=== PATIENT | male | born 1955 | race Caucasian/White ===

== ENCOUNTER 2017-09-01 11:13 | Observation (INO) ==
--- NOTE | 2017-09-01 14:32 | Emergency Department Note ---
Disposition Clinical Impression: Behavioral change, Lacunar infarction Disposition: Home, Self-Care Condition: Fair Time of Disposition: 17:45 Neuro HPI - General Chief Complaint: ED Psychiatric Symptoms Stated Complaint: PSYCH/Paranoia Time Seen by Provider: 09/01/17 13:28 Source: patient Limitations: no limitations Nursing Notes Reviewed: Yes Vital Signs Reviewed: Yes - History of Present Illness HPI Narrative: 61-year-old male presents complaining of neurologic changes, behavior changes for the last few days but his family states that he is a change in behavior over the last month or so, has been a precipitous decline, he has a history of hypertension no previous strokes or MIs. The patient states that he has worsening insomnia as well, and he has been having insomnia for the last few nights, but over the last couple days his daughters noticed that he has had some word finding issues associated with blurry vision as well, no focal deficits or slurred speech. Onset of Symptoms Date: 08/30/17 Symptom Onset Unknown: Yes Timing confirmed by: family member Location: speech, altered History of same: No Severity: mild Symptoms Improving: No Improves with: none Worsens with: none Context: gradual onset On Anticoagulants: No Associated symptoms: Reports: confusion, other (insomnia). Denies: chest pain, cough, headaches, loss of appetite, nausea/vomiting Treatments Prior to Arrival: none - Related Data Home Medications: Home Medications Medication Instructions Recorded Confirmed Cetirizine HCl [Zyrtec] 10 mg PO DAILY 09/01/17 09/01/17 Ibuprofen [Motrin] 400 mg PO HS 09/01/17 09/01/17 Melatonin 5 mg PO HS 09/01/17 09/01/17 amLODIPine [Norvasc] 5 mg PO BID 09/01/17 09/01/17 Allergies/Adverse Reactions: Allergies Allergy/AdvReac Type Severity Reaction Status Date / Time Sulfa (Sulfonamide Allergy Swelling Verified 09/01/17 11:33 Antibiotics) of Lip/Tongue/Throat Hydromorphone [From Dilaudid] AdvReac Hypertensio Verified 09/01/17 11:33 n All systems ED: reviewed and negative except as stated. Review of Systems: As Per HPI Constitutional: Denies: fever, chills Eyes: Denies: eye pain ENT ED: Denies: ear pain Cardiovascular: Denies: chest pain, palpitations Respiratory: Denies: cough Gastrointestinal: Denies: abdominal pain, nausea Genitourinary: Denies: dysuria Musculoskeletal: Denies: back pain Integumentary: Denies: rash Neurological: Reports: as per HPI, confusion. Denies: headache Psychiatric: Reports: as per HPI, other (confusion, insomnia). Denies: anxiety , depression Endocrine: Denies: fatigue, heat or cold intolerance Hematological/Lymphatic: Denies: easy bleeding Past Medical History - Past Medical History Attestation: Yes The following information was validated with the patient. Source: patient Medical history: Reports: GERD, hypertension, other Psychiatric history: Reports: anxiety - Social History Smoking Status: Never smoker Smokeless Tobacco Status: No Alcohol use: Reports: none Drug use: Reports: none Physical Exam Constitutional: alert and oriented, in NAD, vital signs reviewed and wnl HEENT: NCAT, sclera anicteric, PERRLA bilaterally, EOMI Neck: normal inspection, neck is supple, trachea midline Resp: normal chest inspection, CTA bilaterally, no resp distress CV: RRR, no m/g/r GI: normal inspection, Soft, NTND, BS present Back: normal inspection, no tenderness to palpation Neuro: A&O3, gait normal, CN II-XII grossly intact bilaterally, DTRs +2/4 bilateral UE and LE, 5/5 MS bilateral UE and LE, no sensory deficits bilaterally UE and LE, finger to nose intact, JEFE intact and wnl MSK: Right leg AKA, appears within normal limits Psych: normal mood, normal affect Skin: No rashes, skin warm, dry, intact - General Limitations: no limitations General appearance: alert, in no apparent distress Course Course Narrative: Elderly male appears in no acute distress, he states that he has confusion, insomnia, vision changes, his NIH is essentially 0 given that he has no focal deficits, but this is concerning with new vision changes in symptoms, behavioral versus neurologic CT scan ordered basic lab work, determine whether or not patient will need admission for MRI or outpatient follow-up - Reevaluation(s) Reevaluation #1: CT scan was remarkable for a lacunar infarct, this is new from previous CT scan patient's hemodynamically stable, outside the window for TPA by several days, will given aspirin plan for admission to medicine service accepting Vital Signs Temperature 97.6 F 09/01/17 11:22 Pulse Rate 79 09/01/17 11:22 Respiratory Rate 16 09/01/17 11:22 Blood Pressure 143/77 09/01/17 11:22 O2 Sat by Pulse Oximetry 94 09/01/17 11:22 Temperature 97.6 F 09/01/17 11:22 Pulse Rate 71 09/01/17 19:22 Respiratory Rate 16 09/01/17 19:22 Blood Pressure 149/77 09/01/17 19:22 O2 Sat by Pulse Oximetry 95 09/01/17 19:22 Oxygen Delivery Oxygen Delivery Room Air Neuro Symptoms/Deficit - Differential Diagnosis Likely: cerebrovascular accident, subarachnoid hemorrhage, transient cerebral ischemia, convulsions - Medical Records Medical records reviewed: Yes I reviewed the patient's medical records. - Lab Data Lab results reviewed: Yes I reviewed the patient's lab results. Result diagrams: 09/01/17 15:01 09/01/17 15:01 Lab Results 09/01/17 09/01/17 09/01/17 Range/Units 15:01 15:01 15:01 WBC 7.4 (4.3-11.1) K/mcL RBC 5.28 (4.19-5.50) M/mcL Hgb 15.8 (12.9-16.9) g/dL Hct 45.0 (37.5-50.1) % MCV 85.2 (83.0-100.0) fL MCH 29.9 (28.0-33.3) pg MCHC 35.1 (31.6-35.5) g/dL RDW 12.3 (11.5-14.5) % Plt Count 297 (140-400) K/mcL MPV 9.8 (9.4-12.4) fL Immature Gran % 0.3 (0-4) % Seg Neutrophils % 62.2 % Lymphocytes % 26.0 % Monocytes % 9.1 % Eosinophils % 1.9 % Basophils % 0.5 % Neutrophils # 4.6 (1.6-8.9) K/mcL Lymphocytes # 1.9 (0.6-4.6) K/mcL Monocytes # 0.7 (0.0-1.3) K/mcL Eosinophils # 0.1 (0.0-0.6) K/mcL Basophils # 0.0 (0.0-0.2) K/mcL PT (9.4-12.1) Seconds INR APTT (26.0-36.0) Seconds Sodium 140 (136-145) mEq/L Potassium 3.7 (3.5-5.1) mEq/L Chloride 103 (98-107) mEq/L Carbon Dioxide 29 (23-29) mEq/L BUN 12 (8-23) mg/dL Creatinine 0.91 (0.70-1.30) mg/dL Est GFR ( Amer) > 60 (> 60) Est GFR (Non-Af Amer) > 60 (> 60) BUN/Creatinine Ratio 13 (6-26) Glucose 92 (70-105) mg/dL Calculated Osmolality 289 (280-300) Calcium 9.1 (8.6-10.3) mg/dL Total Bilirubin 0.6 (0.3-1.0) mg/dL AST 18 (13-39) Units/L ALT 24 (7-52) Units/L Alkaline Phosphatase 95 (34-104) Units/L Serum Total Protein 7.3 (6.4-8.9) g/dL Albumin 4.2 (3.5-5.7) g/dL Globulin 3.1 (2.4-3.5) g/dL Albumin/Globulin Ratio 1.4 (1.1-2.2) Vitamin B12 329 (250-1100) pg/mL TSH 0.259 L (0.340-5.600) mcIU/mL Urine Color (Yellow) Urine Clarity (Clear) Urine pH (5.0-8.0) pH Units Ur Specific Willis (1.010-1.025) Urine Protein (Neg-Trace) mg/dL Urine Glucose (UA) (Normal) mg/dL Urine Ketones (Negative) mg/dL Urine Blood (Negative) Urine Nitrite (Negative) Urine Bilirubin (Negative) Urine Urobilinogen (Normal) mg/dL Ur Leukocyte Esterase (Negative) Urine Microscopic RBC (0-3) per hpf Urine Microscopic WBC (0-3) per hpf Ur Squamous Epith Cells (None-Few) per lpf Urine Bacteria (None-Few) per hpf Hyaline Casts (None-Few) per lpf Ur Culture Indicated? (NO) 09/01/17 09/01/17 Range/Units 15:01 16:10 WBC (4.3-11.1) K/mcL RBC (4.19-5.50) M/mcL Hgb (12.9-16.9) g/dL Hct (37.5-50.1) % MCV (83.0-100.0) fL MCH (28.0-33.3) pg MCHC (31.6-35.5) g/dL RDW (11.5-14.5) % Plt Count (140-400) K/mcL MPV (9.4-12.4) fL Immature Gran % (0-4) % Seg Neutrophils % % Lymphocytes % % Monocytes % % Eosinophils % % Basophils % % Neutrophils # (1.6-8.9) K/mcL Lymphocytes # (0.6-4.6) K/mcL Monocytes # (0.0-1.3) K/mcL Eosinophils # (0.0-0.6) K/mcL Basophils # (0.0-0.2) K/mcL PT 11.3 (9.4-12.1) Seconds INR 1.1 APTT 26.5 (26.0-36.0) Seconds Sodium (136-145) mEq/L Potassium (3.5-5.1) mEq/L Chloride (98-107) mEq/L Carbon Dioxide (23-29) mEq/L BUN (8-23) mg/dL Creatinine (0.70-1.30) mg/dL Est GFR ( Amer) (> 60) Est GFR (Non-Af Amer) (> 60) BUN/Creatinine Ratio (6-26) Glucose (70-105) mg/dL Calculated Osmolality (280-300) Calcium (8.6-10.3) mg/dL Total Bilirubin (0.3-1.0) mg/dL AST (13-39) Units/L ALT (7-52) Units/L Alkaline Phosphatase (34-104) Units/L Serum Total Protein (6.4-8.9) g/dL Albumin (3.5-5.7) g/dL Globulin (2.4-3.5) g/dL Albumin/Globulin Ratio (1.1-2.2) Vitamin B12 (250-1100) pg/mL TSH (0.340-5.600) mcIU/mL Urine Color Yellow (Yellow) Urine Clarity Clear (Clear) Urine pH 6.0 (5.0-8.0) pH Units Ur Specific Willis 1.013 (1.010-1.025) Urine Protein Trace (Neg-Trace) mg/dL Urine Glucose (UA) Normal (Normal) mg/dL Urine Ketones Negative (Negative) mg/dL Urine Blood Negative (Negative) Urine Nitrite Negative (Negative) Urine Bilirubin Negative (Negative) Urine Urobilinogen Normal (Normal) mg/dL Ur Leukocyte Esterase Negative (Negative) Urine Microscopic RBC 3-5 H (0-3) per hpf Urine Microscopic WBC 3-5 H (0-3) per hpf Ur Squamous Epith Cells Moderate H (None-Few) per lpf Urine Bacteria None Seen (None-Few) per hpf Hyaline Casts None Seen (None-Few) per lpf Ur Culture Indicated? NO (NO) - Radiology Data Radiology results reviewed: Yes I reviewed the patient's radiology results. Head CT 09/01/17 14:31 IMPRESSION: There is a 5 mm area of low attenuation in the left internal capsule not well seen on the prior exam and likely reflects an age indeterminate lacunar infarct. Recommend further evaluation with MRI as clinically indicated. Otherwise, no acute intracranial abnormality. D/ / 09/01/2017 16:30:47 Yamile Schwartz MD / earl Interpreting Provider: Yamile Schwartz MD NIH Stroke Scale - Level of Consciousness LOC: Alert - LOC Questions LOC Questions: Answers both correctly - LOC Commands LOC Commands: Performs both correctly - Best Gaze Best Gaze: Normal - Visual Visual: No visual loss - Facial Palsy Facial Palsy: Normal - Motor Arms Motor Arm-Left: No drift for 10 seconds Motor Arm-Right: No drift for 10 seconds - Motor Legs Motor Leg-Left: No drift for 5 seconds Motor Leg-Right: No drift for 5 seconds - Limb Ataxia Limb Ataxia: Absent of affected limb too weak to perform exam - Sensory Sensory: Normal - Best Language Best Language: No aphasia - Dysarthria Dysarthria: Normal - Extinction and Inattention Extinction and Inattention: Normal - NIHSS Total Score NIHSS Total Score: 0 Attestation Statement - Attestation Attestation: Dr Day note: Pt seen in conjunction w/ resident Dr Henry; Please see his charting for complete documentation; I spent face to face time w/ pt and agree w/ pts treament and disposition and spent face to face time w/ pt; x ray results reviewed; No focal neuro signs/sx @ this time; focus/confusion isssues for many weeks, but worse for the past 5-6 days; oriented /conversive on my exam w/ daughter @ bedside;
[2017-09-01 15:17] LABS: Basophils % 0.5 %; Eosinophils # 0.1 K/mcL (0.0-0.6); Eosinophils % 1.9 %; Hemoglobin 15.8 g/dL (12.9-16.9); Immature Granulocytes % 0.3 % (0-4); Lymphocytes # 1.9 K/mcL (0.6-4.6); Mean Corpuscular HGB Conc 35.1 g/dL (31.6-35.5); Mean Corpuscular Hemoglobin 29.9 pg (28.0-33.3); Mean Corpuscular Volume 85.2 fL (83.0-100.0); Mean Platelet Volume 9.8 fL (9.4-12.4); Monocytes # 0.7 K/mcL (0.0-1.3); Monocytes % 9.1 %; Neutrophils # 4.6 K/mcL (1.6-8.9); Platelet Count 297 K/mcL (140-400); Red Blood Count 5.28 M/mcL (4.19-5.50); Red Cell Distribution Width 12.3 % (11.5-14.5); Segmented Neutrophils % 62.2 %
[2017-09-01 15:46] LABS: Thyroid Stimulating Hormone 0.259 mcIU/mL (0.340-5.600)
[2017-09-01 15:55] LABS: Albumin 4.2 g/dL (3.5-5.7); Bilirubin,Total 0.6 mg/dL (0.3-1.0); Calcium 9.1 mg/dL (8.6-10.3); Carbon Dioxide 29 mEq/L (23-29); Chloride 103 mEq/L (98-107); Potassium 3.7 mEq/L (3.5-5.1); Sodium 140 mEq/L (136-145)
[2017-09-01 16:01] LABS: Alanine Aminotransferase 24 Units/L (7-52); Albumin/Globulin Ratio 1.4 (1.1-2.2); Alkaline Phosphatase 95 Units/L (34-104); Aspartate Amino Transferase 18 Units/L (13-39); BUN/Creatinine Ratio 13 (6-26); Blood Urea Nitrogen 12 mg/dL (8-23); Globulin 3.1 g/dL (2.4-3.5); Glucose 92 mg/dL (70-105); Osmolality,Calculated 289 (280-300); Total Protein 7.3 g/dL (6.4-8.9); eGFR For African Americans > 60 (> 60); eGFR For Non-African Americans > 60 (> 60)
[2017-09-01 16:20] LABS: Bilirubin,Urine Negative (Negative); Blood,Urine Negative (Negative); Clarity,Urine Clear (Clear); Color,Urine Yellow (Yellow); Glucose,Urine (UA) Normal (Normal); Ketones,Urine Negative (Negative); Leukocyte Esterase,Urine Negative (Negative); Nitrite,Urine Negative (Negative); Protein,Urine Trace mg/dL (Neg-Trace); Specific Gravity,Urine 1.013 (1.010-1.025); Urobilinogen,Urine Normal (Normal)
[2017-09-01 16:22] LABS: Bacteria,Urine None Seen per hpf (None-Few); Hyaline Casts,Urine None Seen per lpf (None-Few); Squamous Epithelial Cell,Urine Moderate per lpf (None-Few)
[2017-09-01] MEDS ORDERED: Aspirin 81 MG TAB.CHEW PO ONE (16:52)
[2017-09-01 17:08] LABS: INR 1.1; Prothrombin Time 11.3 Seconds (9.4-12.1)
[2017-09-01 17:11] LABS: Activated Partial Thrombo Time 26.5 Seconds (26.0-36.0)
[2017-09-01] MEDS ORDERED: Acetaminophen 325 MG TABLET PO PRN (21:16)
[2017-09-01] MEDS ORDERED: Naloxone 0.4 MG/ML INJ IVP PRN (21:16)
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
[2017-09-01] MEDS: traZODone 50 MG TABLET PO PRN (23:08)
[2017-09-02] MEDS ORDERED: traZODone 50 MG TABLET PO ONE (00:55)
[2017-09-02] MEDS: *HR* Heparin 5,000 UNIT/ML VIAL SQ SCH ×3 (05:13→23:47)
[2017-09-02 05:50] LABS: Basophils % 0.5 %; Eosinophils # 0.2 K/mcL (0.0-0.6); Eosinophils % 2.8 %; Hematocrit 41.1 % (37.5-50.1); Hemoglobin 14.3 g/dL (12.9-16.9); Immature Granulocytes % 0.3 % (0-4); Lymphocytes # 2.4 K/mcL (0.6-4.6); Lymphocytes % 31.2 %; Mean Corpuscular HGB Conc 34.8 g/dL (31.6-35.5); Mean Corpuscular Hemoglobin 29.6 pg (28.0-33.3); Mean Corpuscular Volume 85.1 fL (83.0-100.0); Mean Platelet Volume 10.1 fL (9.4-12.4); Monocytes # 0.8 K/mcL (0.0-1.3); Monocytes % 10.8 %; Neutrophils # 4.1 K/mcL (1.6-8.9); Platelet Count 286 K/mcL (140-400); Red Blood Count 4.83 M/mcL (4.19-5.50); Red Cell Distribution Width 12.3 % (11.5-14.5); Segmented Neutrophils % 54.4 %
[2017-09-02 06:04] LABS: BUN/Creatinine Ratio 14 (6-26); Blood Urea Nitrogen 14 mg/dL (8-23); Calcium 8.9 mg/dL (8.6-10.3); Carbon Dioxide 32 mEq/L (23-29); Chloride 105 mEq/L (98-107); Glucose 90 mg/dL (70-105); Magnesium 2.2 mg/dL (1.6-2.6); Osmolality,Calculated 292 (280-300); Potassium 3.3 mEq/L (3.5-5.1); Sodium 141 mEq/L (136-145); eGFR For African Americans > 60 (> 60); eGFR For Non-African Americans > 60 (> 60)
[2017-09-02] MEDS: Aspirin Enteric Coated 81 MG Tablet PO SCH (08:13)
[2017-09-02] MEDS: amLODIPine 5 MG TABLET PO SCH ×2 (08:13→21:16)
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
[2017-09-02 10:40] LABS: Triiodothyronine (T3) Free 3.67 pg/mL (2.50-3.90)
--- NOTE | 2017-09-02 12:14 | Electrocardiograph Report ---
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
--- NOTE | 2017-09-02 16:49 | Internal Med Progress Note ---
Date of Encounter: 09/02/17 Time of Encounter: 14:00 - Assessment and plan (1) Behavioral change Current Visit: Yes Status: Acute Assessment and plan: presented with abrupt change in behavior. Head CT concerning for possible left lacunar infarct. Brain MRI nonacute. No obvious infectious or metabolic derangements. Collateral obtained from daughter at bedside. Reports auditory hallucinations; patient report signed daughter voices are telling him not to go to sleep or they will get him. Patient denies auditory hallucinations but does endorse paranoid thoughts in the setting of recent insomnia. Baseline mentation alert and oriented 4 with no previous similar behavior or symptoms. No known psychiatric history. Daughter does report patient's sister has similar presentation with auditory hallucinations and ended up committing suicide. Patient denies SI/HI. Psych consulted (2) Insomnia Current Visit: Yes Status: Acute Assessment and plan: Patient reports not sleeping and over 2 weeks. On melatonin at home. Avoiding Ambien, Benadryl due to previous reactions. Continue home melatonin, add PRN trazadone Qualifiers: Insomnia type: psychophysiologic Qualified Code(s): F51.04 - Psychophysiologic insomnia (3) HTN (hypertension) Current Visit: Yes Status: Acute Assessment and plan: per hx. BP controlled. Cont home BP medication. Qualifiers: Hypertension type: essential hypertension Qualified Code(s): I10 - Essential (primary) hypertension (4) DVT prophylaxis Current Visit: Yes Status: Acute Assessment and plan: heparin - Subjective Interval history: Seen and given a bedside. Patient is new to me, information obtained from chart review, patient report daughter at bedside. Patient says he feels about the same. Still unable to sleep; says he slept only an hour last night. Denies SI/HI - Constitutional Vitals: Temp Pulse Resp BP Pulse Ox 97.8 F 62 15 121/71 95 09/02/17 15:14 09/02/17 15:14 09/02/17 15:14 09/02/17 15:14 09/02/17 15:14 General appearance: Present: A&O X 3, no acute distress, answers questions appropriately - Head Head exam: Present: atraumatic, normocephalic - Eye Eye exam: Present: PERRL, conjuntiva pink, sclera anicteric Pupils: Present: PERRL - Neck Neck exam general surgery: Present: supple, trachea midline. Absent: lymphadenopathy - Respiratory Respiratory exam: Present: CTAB. Absent: accessory muscle use, rales, rhonchi, wheezes - Cardiovascular Cardiovascular exam: Present: RRR, +S1, +S2. Absent: diastolic murmur, gallop, rubs, systolic murmur - GI/Abdominal GI/Abdominal exam: Present: normal bowel sounds, soft, no peritoneal signs. Absent: distended, tenderness - Extremities Exam Extremities exam: Present: warm, radial pulses palpable and symmetrical. Absent : calf tenderness, cyanotic, pedal edema - Neurological Exam Neurological exam: Present: CN II-XII intact, oriented X3, no focal deficits. Absent: pronater drift, facial droop, speech deficit - Skin Skin exam: Present: dry, intact Internal Medicine: Result - Labs CBC & Chem 7: 09/02/17 04:42 09/02/17 04:42 Labs: Short CBC 09/02/17 Range/Units 04:42 WBC 7.6 (4.3-11.1) K/mcL Hgb 14.3 D (12.9-16.9) g/dL Hct 41.1 (37.5-50.1) % Plt Count 286 (140-400) K/mcL Neutrophils # 4.1 (1.6-8.9) K/mcL BMP 09/02/17 04:42 Sodium 141 Potassium 3.3 L Chloride 105 Carbon Dioxide 32 H BUN 14 Creatinine 0.99 Glucose 90 Calcium 8.9 - ABG Interpretation ABG results: PT/INR, D-dimer PT 11.3 Seconds (9.4-12.1) 09/01/17 15:01 - Impressions Impressions Brain MRI 09/02/17 08:41 IMPRESSION: 1. No acute infarct or acute intracranial process identified. 2. Several nonspecific foci of white matter signal abnormality suggesting mild chronic small vessel ischemic changes. D/ / 09/02/2017 11:04:28 Vivek Townsend MD / [facility] Interpreting Provider: Vivek Townsend MD Echocardiogram 09/02/17 21:19 Impressions: LVEF 65%. Normal LV chamber size and function. Mild concentric left ventricular hypertrophy. Mild left ventricular diastolic dysfunction. Normal right ventricular structure and function. No evidence of PFO with agitated saline contrast. No evidence of pulmonary hypertension. No significant valvular dysfunction. Left Ventricular Wall Motion: Rest Echo Findings All wall segments showed normal motion. Findings: Study Quality * Technically adequate exam. ECG Findings * Normal sinus rhythm. Left Ventricle * LVEF 65%. * Normal LV chamber size and function. * Mild concentric left ventricular hypertrophy. * Mild left ventricular diastolic dysfunction. Right Ventricle * Normal right ventricular structure and function. Right Atrium * Normal right atrial size. Left Atrium * Mildly dilated left atrium. Interatrial Septum * No evidence of PFO with agitated saline contrast. Aortic Valve * Trileaflet aortic valve with normal function. * No aortic regurgitation. * No aortic stenosis. Mitral Valve * Normal mitral valve structure and function. * No mitral regurgitation. * No mitral stenosis. Tricuspid Valve * Normal tricuspid valve structure and function. * Trace tricuspid regurgitation. * No evidence of pulmonary hypertension. Pulmonic Valve * Normal pulmonic valve structure and function. * Trace pulmonic regurgitation. Aorta * Normally sized aortic root. Pericardium * The pericardium appears normal. IVC * Normal IVC dimensions and inspiratory collapse. Pulmonary Artery * Normal visualized portions of the main pulmonary artery. Consult Discharge Plan - Plan Referrals: Harish Estrada MD [Primary Care Provider] - 09/15/17 3:45 pm
[2017-09-02] MEDS: Melatonin 3 MG TABLET PO SCH (23:42)
[2017-09-02] MEDS: traZODone 50 MG TABLET PO PRN (23:42)
[2017-09-03] MEDS: Aspirin Enteric Coated 81 MG Tablet PO SCH (09:40)
[2017-09-03] MEDS: amLODIPine 5 MG TABLET PO SCH ×2 (09:40→21:00)
[2017-09-03] MEDS ORDERED: *HR* LORazepam 1 MG TABLET PO ONE (12:46)
--- NOTE | 2017-09-03 14:19 | Consult Note ---
Date of Encounter: 09/03/17 Time of Encounter: 10:45 Assessment & Recommendation (1) Major depression with psychotic features Current visit: Yes Status: Acute Assessment & Recommendation: Patient meets criteria for MDD, recurrent with psychotic features. It was suggested that he be placed on a low dose of Elavil at night. This would target his phantom pain, help potentially with sleep and could be titrated up targeting his depressive symptoms. It was also highly suggested that he start counseling to talk about the life stress that he has and process the grief over his 's . History of Present Illness Patient: new to practice Requesting Physician: Camilla Matta CNP Reason for consult: Confusion and insomnia History of present illness: Mr. Magaña is a 61 year old male who I was consult it regarding having problems with confusion insomnia and hearing voices. (a friend of his was there and he asked him to stay during the interview. His name was Marbnidanni Blakejayshree) When I introduced myself and asked the patient how he was doing and what was going on he stated "I hear voices. He describes them as "not audible like someone speaking, like you are speaking, but I hear things". I started asking him further about his life and current life situation He explained to me that is life has been very stressful. He has a right leg below the knee amputation that he is having problems with currently. His and is raising a teenage son on his own. He is having financial problems. He bought a house in the past year and is now thinking that he cannot manage the house on his own. He just feels overwhelmed. He preceded to talk about his sleep, "I do not like how I feel I want to sleep". He tells me that when he goes to bed at night, often times he just lays there with his eyes open. He tells me that he is fatigued all the time for the last 2 or 3 months. The stresses are getting to him. He has poor attention and concentration. Finds himself isolating and he can't get things done that he needs to get done. He is sad and lonely and has no desire to do things. He has noticed his appetite decrease and he may have lost some weight. He denies any suicidal or homicidal ideation. But he does state that is sleep quality is very poor. Sometimes he can fall asleep but he does not stay asleep. He has a history of having taken Ambien before. He stopped taking that because he felt unable to focus at times and also noticed that made him fall asleep way to quickly when he was not ready to get to bed yet. He states one time he took it and he was sitting in a chair and a falling asleep and falling out of the chair instead of making the bed. He denies having any racing thoughts he denies gambling or other impulsivity. He has no history of substance abuse. He has no visual hallucinations. He does not have paranoia nor does he think the FBI, [employer] or any government agencies are out to get him. He is not believe he has the ability to mine read. When I asked him in regards to the voices he states that he cannot make out what they say but it is like he is hearing something and hearing noises. He states that night he hears his house creaking which may or may not actually be creaking. This started about 2-3 months ago also. He as never experienced it before. He has an issues with phantom pain with his amputation and used to be on Amitriptyline. He stopped taking it even though it made him feel better and took the pain away. He was on Zoloft 2-3 years ago "for sleep" but also has a history of depression and anxiety. He has never been inpatient nor seen a therapist for mental health counseling. He would like something to help him sleep which he thinks will potentially make him feel better in regards to his mood. He does not want something that makes them follow your fuzzy during the day like Zoloft used to. He does not want something that will make him fall asleep instantly like the Ambien did where he can wake up and focus and concentrate. CC: Camilla Matta, SUSIE Past Med Surg Social Fam HX - Past Medical History Medical history: GERD, hypertension, other - Past Psychiatric History Psychiatric history: Reports: anxiety, depression Family psychiatric history: No Family History of Suicide: None - Social History Smoking Status: Never smoker Smokeless Tobacco Status: No Alcohol use: none Drug use: none Occupational status: employed Current living situation: Home - Independent Activity Level: Independent ambulation (He has a right lower leg protethesis.) Recent Out of Country Travel Within the Last 8 Weeks: No Exposure or Possible Exposure to Illness During Travel: No - Family History Mother History Unknown: Yes Father Living Status: Age at : 62 Cause of : Heart failure Hx Family Cardiac Disorders: Yes (heart failure, CABG) Hx Family Genitourinary Disorders: Yes (kidney failure) Hx Family Endocrine Disorder: Yes (dm) Medications & Allergies Cetirizine HCl [Zyrtec] 10 mg PO DAILY 09/01/17 [History] Ibuprofen [Motrin] 400 mg PO HS 09/01/17 [History] Melatonin 5 mg PO HS 09/01/17 [History] amLODIPine [Norvasc] 5 mg PO BID 09/01/17 [History] Amitriptyline [Elavil] 5 mg PO HS #15 tablet 09/04/17 [Rx] 3 Allergy/AdvReac Type Severity Reaction Status Date / Time Sulfa (Sulfonamide Allergy Swelling Verified 09/01/17 11:33 Antibiotics) of Lip/Tongue/Throat Hydromorphone [From Dilaudid] AdvReac Hypertensio Verified 09/01/17 11:33 n Mental Status Exam Patient orientation: Yes Person, Yes Time, Yes Place, Yes Circumstance Level of alertness: Alert Patient appearance: Appropriate Behavior: calm Psychomotor activity: Slowed Eye contact: Maintains Eye Contact Mood description: Depressed Affect description: congruent with mood Speech pattern: Normal rate, Normal rhythm, Normal tone Speech volume: Normal Thought process: Intact Thought content: Yes Intact Attention span: Capable of Focused Attention Memory description: Grossly Intact Patient reliability: Reliable Historian Intelligence estimate: Average Judgment: Fair Insight: Partial Results - Vital Signs Vital signs: Temp Pulse Resp BP Pulse Ox 97.9 F 61 18 130/70 92 09/03/17 12:13 09/03/17 12:13 09/03/17 12:13 09/03/17 12:13 09/03/17 12:13 - Labs Labs: Laboratory Last Values WBC 7.6 K/mcL (4.3-11.1) 09/02/17 04:42 RBC 4.83 M/mcL (4.19-5.50) 09/02/17 04:42 Hgb 14.3 g/dL (12.9-16.9) D 09/02/17 04:42 Hct 41.1 % (37.5-50.1) 09/02/17 04:42 MCV 85.1 fL (83.0-100.0) 09/02/17 04:42 MCH 29.6 pg (28.0-33.3) 09/02/17 04:42 MCHC 34.8 g/dL (31.6-35.5) 09/02/17 04:42 RDW 12.3 % (11.5-14.5) 09/02/17 04:42 Plt Count 286 K/mcL (140-400) 09/02/17 04:42 MPV 10.1 fL (9.4-12.4) 09/02/17 04:42 Immature Gran % 0.3 % (0-4) 09/02/17 04:42 Seg Neutrophils % 54.4 % 09/02/17 04:42 Lymphocytes % 31.2 % 09/02/17 04:42 Monocytes % 10.8 % 09/02/17 04:42 Eosinophils % 2.8 % 09/02/17 04:42 Basophils % 0.5 % 09/02/17 04:42 Neutrophils # 4.1 K/mcL (1.6-8.9) 09/02/17 04:42 Lymphocytes # 2.4 K/mcL (0.6-4.6) 09/02/17 04:42 Monocytes # 0.8 K/mcL (0.0-1.3) 09/02/17 04:42 Eosinophils # 0.2 K/mcL (0.0-0.6) 09/02/17 04:42 Basophils # 0.0 K/mcL (0.0-0.2) 09/02/17 04:42 PT 11.3 Seconds (9.4-12.1) 09/01/17 15:01 INR 1.1 09/01/17 15:01 APTT 26.5 Seconds (26.0-36.0) 09/01/17 15:01 Sodium 141 mEq/L (136-145) 09/02/17 04:42 Potassium 3.3 mEq/L (3.5-5.1) L 09/02/17 04:42 Chloride 105 mEq/L (98-107) 09/02/17 04:42 Carbon Dioxide 32 mEq/L (23-29) H 09/02/17 04:42 BUN 14 mg/dL (8-23) 09/02/17 04:42 Creatinine 0.99 mg/dL (0.70-1.30) 09/02/17 04:42 Est GFR ( Amer) > 60 (> 60) 09/02/17 04:42 Est GFR (Non-Af Amer) > 60 (> 60) 09/02/17 04:42 BUN/Creatinine Ratio 14 (6-26) 09/02/17 04:42 Glucose 90 mg/dL (70-105) 09/02/17 04:42 Calculated Osmolality 292 (280-300) 09/02/17 04:42 Calcium 8.9 mg/dL (8.6-10.3) 09/02/17 04:42 Magnesium 2.2 mg/dL (1.6-2.6) 09/02/17 04:42 Total Bilirubin 0.6 mg/dL (0.3-1.0) 09/01/17 15:01 AST 18 Units/L (13-39) 09/01/17 15:01 ALT 24 Units/L (7-52) 09/01/17 15:01 Alkaline Phosphatase 95 Units/L (34-104) 09/01/17 15:01 Serum Total Protein 7.3 g/dL (6.4-8.9) 09/01/17 15:01 Albumin 4.2 g/dL (3.5-5.7) 09/01/17 15:01 Globulin 3.1 g/dL (2.4-3.5) 09/01/17 15:01 Albumin/Globulin Ratio 1.4 (1.1-2.2) 09/01/17 15:01 Vitamin B12 329 pg/mL (250-1100) 09/01/17 15:01 Folate 23.0 ng/mL (3.0-16.0) H 09/02/17 09:06 TSH 0.259 mcIU/mL (0.340-5.600) L 09/01/17 15:01 Free T4 1.20 ng/dl (0.70-2.00) 09/02/17 09:06 Free T3 3.67 pg/mL (2.50-3.90) 09/02/17 09:06 Urine Color Yellow (Yellow) 09/01/17 16:10 Urine Clarity Clear (Clear) 09/01/17 16:10 Urine pH 6.0 pH Units (5.0-8.0) 09/01/17 16:10 Ur Specific [place] 1.013 (1.010-1.025) 09/01/17 16:10 Urine Protein Trace mg/dL (Neg-Trace) 09/01/17 16:10 Urine Glucose (UA) Normal mg/dL (Normal) 09/01/17 16:10 Urine Ketones Negative mg/dL (Negative) 09/01/17 16:10 Urine Blood Negative (Negative) 09/01/17 16:10 Urine Nitrite Negative (Negative) 09/01/17 16:10 Urine Bilirubin Negative (Negative) 09/01/17 16:10 Urine Urobilinogen Normal mg/dL (Normal) 09/01/17 16:10 Ur Leukocyte Esterase Negative (Negative) 09/01/17 16:10 Urine Microscopic RBC 3-5 per hpf (0-3) H 09/01/17 16:10 Urine Microscopic WBC 3-5 per hpf (0-3) H 09/01/17 16:10 Ur Squamous Epith Cells Moderate per lpf (None-Few) H 09/01/17 16:10 Urine Bacteria None Seen per hpf (None-Few) 09/01/17 16:10 Hyaline Casts None Seen per lpf (None-Few) 09/01/17 16:10 Ur Culture Indicated? NO (NO) 09/01/17 16:10 Consult Discharge Plan - Plan Instructions: Amitriptyline (By mouth), Depression (DC), Suicide Prevention for Adults (DC), Insomnia (DC) Additional Instructions: Please establish care with a psychiatrist or counselor within 1-2 weeks. You may need to obtain a referral from you family care physician. Referrals: [facility] [Outside] - 09/28/17 2:00 pm (Please arrive 15-20 minutes prior to appointment time. If you have to cancel please call 3 days prior to appointment.) Harish Estrada MD [Primary Care Provider] - 09/14/17 9:45 am (please cancel appointment scheduled for august, at 3:45pm.) Prescriptions: Amitriptyline [Elavil] 5 mg PO HS #15 tablet
--- NOTE | 2017-09-03 14:49 | Internal Med Progress Note ---
Date of Encounter: 09/03/17 Time of Encounter: 13:00 - Assessment and plan (1) Major depression with psychotic features Current Visit: Yes Status: Acute Assessment and plan: presented with abrupt change in behavior. Daughter reports auditory hallucinations, stated patient reported voices telling him not to go to sleep or they will get him. Patient denies auditory hallucinations but does endorse paranoid thoughts in the setting of recent insomnia. Head CT concerning for possible left lacunar infarct. Brain MRI nonacute. No obvious infectious or metabolic derangements. Has hx depression and has been on zoloft in the past. Discussed case with psychiatry who suspects recurrent major depression with psychotic features. Trial low-dose amitriptyline as this helped in the past with right leg phantom pain which may in turn help insomnia which may in turn help depression. Patient will need to follow-up with psychiatry/counseling outpatient. (2) Insomnia Current Visit: Yes Status: Acute Assessment and plan: Patient reports not sleeping in over 2 weeks. On melatonin at home. Avoiding Ambien, Benadryl due to previous reactions. Trial low dose amitriptyline as this has helped in the past. Continue home melatonin, PRN trazadone Qualifiers: Insomnia type: psychophysiologic Qualified Code(s): F51.04 - Psychophysiologic insomnia (3) HTN (hypertension) Current Visit: Yes Status: Acute Assessment and plan: per hx. BP controlled. Cont home BP medication. Monitor BP well on amitriptyline as can cause hypotension. Qualifiers: Hypertension type: essential hypertension Qualified Code(s): I10 - Essential (primary) hypertension (4) DVT prophylaxis Current Visit: Yes Status: Acute Assessment and plan: heparin - Subjective Interval history: Seen and given a bedside; no acute changes and exam to report. Patient says he slept about 2 hours last night. Still with paranoid and intrusive thoughts. No SI or HI. He is agreeable to trial amitriptyline with monitoring overnight and possible discharge tomorrow. - Constitutional Vitals: Temp Pulse Resp BP Pulse Ox 97.9 F 61 18 130/70 92 09/03/17 12:13 09/03/17 12:13 09/03/17 12:13 09/03/17 12:13 09/03/17 12:13 General appearance: Present: A&O X 3, no acute distress, answers questions appropriately - Head Head exam: Present: atraumatic, normocephalic - Eye Eye exam: Present: PERRL, conjuntiva pink, sclera anicteric Pupils: Present: PERRL - Neck Neck exam general surgery: Present: supple, trachea midline. Absent: lymphadenopathy - Respiratory Respiratory exam: Present: CTAB. Absent: accessory muscle use, rales, rhonchi, wheezes - Cardiovascular Cardiovascular exam: Present: RRR, +S1, +S2. Absent: diastolic murmur, gallop, rubs, systolic murmur - GI/Abdominal GI/Abdominal exam: Present: normal bowel sounds, soft, no peritoneal signs. Absent: distended, tenderness - Extremities Exam Extremities exam: Present: warm, radial pulses palpable and symmetrical. Absent : calf tenderness, cyanotic, pedal edema Additional comments: R BKA - Neurological Exam Neurological exam: Present: CN II-XII intact, oriented X3, no focal deficits. Absent: pronater drift, facial droop, speech deficit - Skin Skin exam: Present: dry, intact Internal Medicine: Result - Labs CBC & Chem 7: 09/02/17 04:42 09/02/17 04:42 - ABG Interpretation ABG results: PT/INR, D-dimer PT 11.3 Seconds (9.4-12.1) 09/01/17 15:01 Consult Discharge Plan - Plan Referrals: Harish Estrada MD [Primary Care Provider] - 09/15/17 3:45 pm
[2017-09-03] MEDS: *HR* Heparin 5,000 UNIT/ML VIAL SQ SCH (17:43)
[2017-09-03] MEDS: Melatonin 3 MG TABLET PO SCH (22:40)
[2017-09-04] MEDS: *HR* Heparin 5,000 UNIT/ML VIAL SQ SCH (05:08)
[2017-09-04] MEDS: Aspirin Enteric Coated 81 MG Tablet PO SCH (08:17)
[2017-09-04] MEDS: amLODIPine 5 MG TABLET PO SCH (08:17)
[2017-09-04 10:25] LABS: Magnesium 2.1 mg/dL (1.6-2.6); Potassium 3.7 mEq/L (3.5-5.1)
--- NOTE | 2017-09-04 13:51 | Discharge Summary ---
Date of Encounter: 09/04/17 Time of Encounter: 13:46 - Discharge Diagnosis (1) Major depression with psychotic features Priority: Primary Status: Acute Comments: presented with abrupt change in behavior and insomnia (has not slept in over 2 weeks). Daughter reports auditory hallucinations, stated patient reported voices telling him not to go to sleep or they will get him. Patient denies auditory hallucinations but does endorse paranoid thoughts in the setting of recent insomnia. Head CT concerning for possible left lacunar infarct. Brain MRI non-acute. No obvious infectious or metabolic derangements. Has hx depression and has been on zoloft in the past. Discussed case with psychiatry who suspects recurrent major depression with possible psychotic features. Low dose amitriptyline restarted per psychiatry recommendations as this helped in the past. Will need to follow-up with psychiatry/counseling outpatient (2) Insomnia Priority: Primary Status: Acute Comments: Patient reports not sleeping in over 2 weeks. On melatonin at home. Avoiding Ambien, Benadryl due to previous reactions. Slept approximately 3-1/2 hours with low-dose amitriptyline as noted above. Continue amitriptyline 5 mg at at bedtime as needed for sleep, continue home melatonin. Qualifiers: Insomnia type: psychophysiologic Qualified Code(s): F51.04 - Psychophysiologic insomnia (3) HTN (hypertension) Priority: Primary Status: Acute Comments: per hx. BP variable but acceptable. Continue home BP medications Qualifiers: Hypertension type: essential hypertension Qualified Code(s): I10 - Essential (primary) hypertension - Discharge Medications Prescriptions: Amitriptyline [Elavil] 5 mg PO HS #15 tablet Home Medications: Cetirizine HCl [Zyrtec] 10 mg PO DAILY 09/01/17 [History] Ibuprofen [Motrin] 400 mg PO HS 09/01/17 [History] Melatonin 5 mg PO HS 09/01/17 [History] amLODIPine [Norvasc] 5 mg PO BID 09/01/17 [History] Amitriptyline [Elavil] 5 mg PO HS #15 tablet 09/04/17 [Rx] Allergies/Adverse Reactions: 3 Allergy/AdvReac Type Severity Reaction Status Date / Time Sulfa (Sulfonamide Allergy Swelling Verified 09/01/17 11:33 Antibiotics) of Lip/Tongue/Throat Hydromorphone [From Dilaudid] AdvReac Hypertensio Verified 09/01/17 11:33 n Procedures/tests Complete & Pending: Procedures Performed prior 72 hours Category Date Time Status MR head/brain wo con [MR] Routine MRI 09/02/17 08:41 Completed EV carotid duplex imaging BI Routine Y 09/02/17 21:19 Completed EV echocardiogram Routine Y 09/02/17 21:19 Completed Date of admission: 09/01/17 20:28 Primary care physician: Harish Estrada MD Consults: 09/01/17 21:24 Consult to Neurology [CONS] Routine Consulting Provider: Neurology [facility] Reason for Consult: Stroke? Call Completed: Yes 09/02/17 15:38 Consult to Psychiatry [CONS] Routine Consulting Provider: Psych[facility] Reason for Consult: Confusion, insomnia and auditory hallucinations Call Completed: Yes 09/03/17 11:45 Consult to [facility] [CONS] Routine Reason for SW Consult: Set up with outpatient counseling Discharging clinician: Camilla Matta Anticipated date of discharge: 09/04/17 - Patient Status Disposition: Home, Self-Care Condition: Good Functional capacity at discharge: independent ambulation Overall status at discharge: patient is progressing back to baseline - Discharge Instructions Instructions: Insomnia (DC), Suicide Prevention for Adults (DC), Depression (DC ), Amitriptyline (By mouth) Follow Up With: Harish Estrada MD [Primary Care Provider] - 09/14/17 9:45 am (please cancel appointment scheduled for august, at 3:45pm.) Additional Instructions: Please establish care with a psychiatrist or counselor within 1-2 weeks. You may need to obtain a referral from you family care physician. - Diet and Activity Activity: increase activity as tolerated Diet: advance to your usual diet Interval History: Seen and examined at bedside. Patient says he slept approximately 3-3/2 hours last night says he feels a little better. He still reluctant to go home, says he may go home with his daughter or sister over the weekend. Continues to deny SI/HI. No auditory or visual hallucinations. Hospital course: See assessment and plan for hospital course - Time Spent with Patient Total time spent providing and/or coordinating discharge services: - Constitutional Vitals: Temp Pulse Resp BP Pulse Ox 97.7 F 64 16 152/69 95 09/04/17 11:35 09/04/17 11:35 09/04/17 11:35 09/04/17 11:35 09/04/17 11:35 General appearance: Present: A&O X 3, no acute distress, answers questions appropriately - Head Head exam: Present: atraumatic, normocephalic - Eye Eye exam: Present: PERRL, conjuntiva pink, sclera anicteric Pupils: Present: PERRL - Neck Neck exam general surgery: Present: supple, trachea midline. Absent: lymphadenopathy - Respiratory Respiratory exam: Present: CTAB. Absent: accessory muscle use, rales, rhonchi, wheezes - Cardiovascular Cardiovascular exam: Present: RRR, +S1, +S2. Absent: diastolic murmur, gallop, rubs, systolic murmur - GI/Abdominal GI/Abdominal exam: Present: normal bowel sounds, soft, no peritoneal signs. Absent: distended, tenderness - Extremities Exam Extremities exam: Present: warm, radial pulses palpable and symmetrical. Absent : calf tenderness, cyanotic, pedal edema Additional comments: R BKA - Neurological Exam Neurological exam: Present: CN II-XII intact, oriented X3, no focal deficits. Absent: pronater drift, facial droop, speech deficit - Skin Skin exam: Present: dry, intact
[2017-09-04 16:03] VITALS: BP 125/74
== END 2017-09-04 16:59 | disposition home or self-care (01) ==
LOC: EMEROO 11:13 → 3BNU 11:13
PROVIDERS: ADMIT Internal Medicine; ATTEND Registered Nurse